=== PATIENT | female | born 1990 | race Caucasian/White ===

== ENCOUNTER 2022-10-04 00:46 | Emergency (ER) | payer SELFPAY ==
[~2022-10-04] VITALS: Ht 165.1 cm; Wt 91.0 kg
[~2022-10-04 00:46] MED LIST: IBUP-779 PO; IRON18TA PO; MULT-1101 PO
[2022-10-04 01:35] VITALS: BP 131/86
== END 2022-10-04 03:30 | disposition left against medical advice (07) ==
LOC: ER 00:46
DX: Z53.21 Procedure and treatment not carried out due to patient leaving prior to being seen by health care provider (principal)

== ENCOUNTER 2023-04-01 22:15 | Emergency (ER) | payer SELFPAY ==
[~2023-04-01] VITALS: Ht 165.1 cm; Wt 210.0 kg
[2023-04-01 23:07] VITALS: BP 217/185; PULSE 101; RESP 18; TEMP 97.9
[2023-04-01 23:15] LABS: CLARITY URINE TURBID (CLEAR); COLOR URINE YELLOW (YELLOW); KETONES URINE TRACE (NEGATIVE); LEUKOCYTE ESTERASE URINE 3+ (NEGATIVE); NITRITE URINE NEGATIVE (NEGATIVE); OCCULT BLOOD URINE TRACE (NEGATIVE); PROTEIN URINE 1+ (NEGATIVE); SPECIFIC GRAVITY URINE 1.026 (1.005-1.030)
[2023-04-01 23:33] LABS: HEMATOCRIT. 34.7 % (36.0-48.0); MEAN PLATELET VOLUME 7.8 fl (7.4-10.4); PLATELET 194 x1000/uL (130-400); RED BLOOD CELL COUNT 3.65 mill/uL (4.2-5.4); RED CELL DISTRIBUTION WIDTH 14.2 % (11.6-14.6)
[2023-04-01 23:44] LABS: CHLORIDE 102 mEq/L (98-107)
[2023-04-02 01:38] LABS: PLATELET ESTIMATE NORMAL
[2023-04-02] MEDS ORDERED: ACETAMINOPHEN 325MG TABLET PO ONE (04:00)
[2023-04-02] MEDS ORDERED: CLONIDINE 0.1MG TABLET PO ONE (04:00)
[2023-04-02] MEDS ORDERED: HYDRALAZINE HCL 10MG TABLET PO ONE (04:00)
[2023-04-02] MEDS ORDERED: LORAZEPAM 1MG TABLET PO ONE (04:00)
[2023-04-02] MEDS ORDERED: IBUP-2029 MT (06:07)
[2023-04-02] MEDS ORDERED: NITR-87 MT (06:07)
== END 2023-04-02 05:39 | disposition left against medical advice (07) ==
LOC: ER 22:15
DX: R10.9 Unspecified abdominal pain (principal); I10 Essential (primary) hypertension; Z79.899 Other long term (current) drug therapy
CPT/HCPCS: 36415; 80053; 81003; 81025; 85025; 87077; 87186; 93005; 99284

== ENCOUNTER 2024-01-19 09:37 | Emergency (ER) | payer MEDICAID ==
[~2024-01-19] VITALS: Ht 165.1 cm; Wt 89.0 kg
[~2024-01-19 09:37] MED LIST changes: +IBUP-2029 MT; +NITR-87 MT
[2024-01-19 10:05] VITALS: O2SAT 100
[2024-01-19 10:21] LABS: BASOPHILS % 0.5 % (0.0-2.0); EOSINOPHILS % 0.3 % (0.0-5.0); HEMATOCRIT. 37.2 % (36.0-48.0); HEMOGLOBIN. 12.7 g/dL (12.0-16.0); LYMPHOCYTES % 31.9 % (20.0-50.0); MEAN CORPUSCULAR HEMOGLOBIN 32.1 pg (28.0-32.0); MEAN CORPUSCULAR HGB CONC 34.1 g/dL (31.0-37.0); MEAN PLATELET VOLUME 7.6 fl (7.4-10.4); MONOCYTES % 7.2 % (2.0-8.0); NEUTROPHILS % 60.1 % (40.0-76.0); PLATELET 248 x1000/uL (130-400); RED BLOOD CELL COUNT 3.95 mill/uL (4.2-5.4); RED CELL DISTRIBUTION WIDTH 14.7 % (11.6-14.6)
[2024-01-19 10:30] VITALS: BP 141/98; PULSE 96; RESP 18; TEMP 98.5
[2024-01-19 10:46] LABS: CHLORIDE 106 mEq/L (98-107); POTASSIUM 3.5 mEq/L (3.5-5.1); SODIUM 143 mEq/L (136-145)
[2024-01-19 10:47] LABS: CALCIUM 9.3 mg/dL (8.7-10.4); CARBON DIOXIDE 27 mEq/L (21-32)
[2024-01-19 10:52] LABS: CREATININE 0.8 mg/dL (0.6-1.0); GLUCOSE 94 mg/dL (70-105); UREA NITROGEN BLOOD 14 mg/dL (9-23)
[2024-01-19 11:27] LABS: HCG SCREEN NEGATIVE
[2024-01-19 11:38] LABS: CLARITY URINE CLOUDY (CLEAR); COLOR URINE YELLOW (YELLOW); GLUCOSE URINE NEGATIVE (NEGATIVE); KETONES URINE 3+ (NEGATIVE); LEUKOCYTE ESTERASE URINE NEGATIVE (NEGATIVE); NITRITE URINE NEGATIVE (NEGATIVE); OCCULT BLOOD URINE TRACE (NEGATIVE); PROTEIN URINE TRACE (NEGATIVE); SPECIFIC GRAVITY URINE 1.025 (1.005-1.030)
[2024-01-19 11:40] LABS: ALANINE AMINOTRANSFERASE 18 IU/L (10-49); ALBUMIN 4.4 g/dL (3.2-4.8); ASPARTATE AMINOTRANSFERASE 27 IU/L (<34); BILIRUBIN DIRECT 0.2 mg/dL (<=3.0); BILIRUBIN TOTAL 0.6 mg/dL (0.1-1.0); PROTEIN TOTAL 7.5 g/dL (6.0-8.3)
[2024-01-19 11:51] LABS: BACTERIA URINE 2+; SQUAMOUS EPITHELIAL CELL URINE 3+ /lpf (RARE/1+); YEAST URINE NONE SEEN
== END 2024-01-19 14:15 | disposition left against medical advice (07) ==
LOC: ER 09:37
DX: R10.9 Unspecified abdominal pain (principal); Z53.21 Procedure and treatment not carried out due to patient leaving prior to being seen by health care provider
CPT/HCPCS: 36415; 80048; 80076; 81003; 81025; 84703; 85025; 93005; 99284